=== PATIENT | female | born 2000 ===

== ENCOUNTER 2021-09-30 15:45 | Outpatient (CLI) | payer OTHER | END 2021-09-30 16:56 | disposition home or self-care (01) | LOC: PRENATAL 15:45 | PROVIDERS: ATTEND Obstetrics & Gynecology Maternal & Fetal Medicine | DX: O35.0XX0 Maternal care for (suspected) central nervous system malformation in fetus, not applicable or unspecified (principal); O35.3XX0 Maternal care for (suspected) damage to fetus from viral disease in mother, not applicable or unspecified; Z3A.20 20 weeks gestation of pregnancy ==

== ENCOUNTER 2021-12-25 07:32 | Inpatient (IN) | payer OTHER ==
[~2021-12-25] VITALS: Ht 152.4 cm; Wt 2.7 kg
[2021-12-25] MEDS ORDERED: IRON PO (09:21)
[2021-12-25] MEDS ORDERED: PRENATAL + DHA1 EAC1 PO (09:21)
[2021-12-28] MEDS ORDERED: IBUPROFEN800 MG PO (07:36)
== END 2021-12-28 13:38 | disposition home or self-care (01) | DRG 788 ==
LOC: LDR 07:32 → OB/GYN 07:32
PROVIDERS: ADMIT Obstetrics & Gynecology; ATTEND Obstetrics & Gynecology
PROC: 4A1HXCZ Monitoring of Products of Conception, Cardiac Rate, External Approach (ICD-10-PCS; 2021-12-25)
PROC: 10D00Z1 Extraction of Products of Conception, Low, Open Approach (ICD-10-PCS; principal; 2021-12-25 20:00)
DX: O82 Encounter for cesarean delivery without indication (principal); O77.8 Labor and delivery complicated by other evidence of fetal stress; O99.820 Streptococcus B carrier state complicating pregnancy; Z3A.38 38 weeks gestation of pregnancy; Z37.0 Single live birth; Z20.822 Contact with and (suspected) exposure to COVID-19